=== PATIENT | male | born 1975 | race Caucasian/White ===

== ENCOUNTER 2016-03-31 11:08 | Observation (INO) | payer SELFPAY ==
[~2016-03-31] VITALS: Ht 177.8 cm; Wt 55.8 kg
[2016-03-31] MEDS ORDERED: BUSPAR10 MG PO (16:19)
[2016-03-31] MEDS ORDERED: LEXAPRO20 MG PO (16:19)
[2016-03-31] MEDS ORDERED: ALPRAZOLAM0.5 MG PO (16:24)
[2016-03-31] MEDS ORDERED: PRINIVIL5 MG PO (16:24)
[2016-04-01] MEDS ORDERED: PREDNISONE10 MG PO (10:07)
[2016-04-01] MEDS ORDERED: AUGMENTIN 875-1 EACH PO (10:09)
[2016-04-01] MEDS ORDERED: RISPERDAL1 MG PO (10:09)
[2016-04-11] MEDS ORDERED: LISINOPRIL5 MG PO (01:01)
== END 2016-04-01 10:43 | disposition short-term general hospital (02) ==
LOC: ER 11:08 → OBS 16:55 → IP 16:55
PROVIDERS: ADMIT Family Medicine
DX: K12.2 Cellulitis and abscess of mouth (principal); R09.3 Abnormal sputum; R19.5 Other fecal abnormalities; F10.129 Alcohol abuse with intoxication, unspecified; Z79.899 Other long term (current) drug therapy
CPT/HCPCS: G0378; G0480; J0696; J1200; J2060; J2405; J2930